=== PATIENT | female | born 1970 | race Caucasian/White ===

== ENCOUNTER → 2019-11-05 | Outpatient (CLI) | payer OTHER ==
--- NOTE | 2019-11-06 10:37 | RADIOLOGY REPORT (SQ) ---
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 RADIONUCLIDE AND DOSE: 11.96 mCi F18 FDG The route of agent administration: Intravenous FASTING BLOOD SUGAR: 85 mg/dl CONTRAST TYPE AND DOSE: No CT contrast given. TECHNIQUE: Blood glucose level was verified. Above dose of FDG was injected intravenously. 2-D seg mented attenuation correction images were obtained from the base of the skull to the midthighs. Nonc ontrast CT images were obtained for attenuation correction and fusion with emission images. CT image s were performed without oral or intravenous contrast and are not sensitive for parenchymal lesions. A series of overlapping emission PET images were obtained. Images reviewed and manipulated at [facility] work station by the radiologist. Images stored on PACS. LIMITATIONS: None. FINDINGS: HEAD AND NECK: No areas of abnormal metabolic activity in the soft tissues of the head and neck. CHEST: No areas of abnormal metabolic activity in the chest. ABDOMEN AND PELVIS: No areas of abnormal metabolic activity in the abdomen or pelvis. Expected physi ologic activity is present in the genitourinary system and bowel. PROXIMAL EXTREMITIES: Postsurgical changes at the right proximal humerus with focally increased activ ity anterior to the proximal humeral diaphysis (max SUV 5.5). This corresponds to an area of increas ed attenuation anterior to the humerus possibly heterotopic ossification versus soft tissue methylmet hacrylate. Additional methylmethacrylate within the right proximal humerus. No additional areas of pathologic FDG uptake within the visualized extremities. BONES: No abnormal metabolic activity in the visualized skeleton. ADDITIONAL CT FINDINGS: As above. OTHER: Background hepatic activity max SUV 3.1. IMPRESSION: 1. Postsurgical changes with in the right proximal humerus with area of focally increas ed activity anterior to the proximal humeral diaphysis (max SUV 5.5). Findings may represent post tr eatment change versus residual disease. 2. No other areas of pathologic uptake throughout the remainder of the scan. TECHNICAL DOCUMENTATION: JOB ID: [id number] 2010 [employer]- All Rights Reserved Reading location - IP/workstation name: [email or web address]
== END ==
LOC: RAD 13:42
PROVIDERS: ATTEND Internal Medicine
DX: C90.30 Solitary plasmacytoma not having achieved remission (principal)
CPT/HCPCS: 78815; A9552